=== PATIENT | female | born 1950 | race Caucasian/White ===

== ENCOUNTER 2017-02-22 11:39 | Emergency (ER) | payer MEDICARE, OTHER ==
[2017-02-22 11:56] VITALS: BP 165/79
--- NOTE | 2017-02-22 13:14 | RAD ---
Indication: Left clavicle pain after a fall Comparison: Left shoulder radiograph dated November 01, 2015 Technique: AP and cephalad oblique views LEFT clavicle. Report: The left clavicle and visualized bones are intact and appropriately aligned. There is joint space narrowing of the acromioclavicular joint similar in appearance to the previous left shoulder x-ray dated 1016. No definite fracture is identified. IMPRESSION: Degenerative changes of the left AC joint are similar to the previous radiograph the left shoulder.
--- NOTE | 2017-02-22 13:16 | RAD ---
INDICATION: Left hand pain after a fall COMPARISON: None. TECHNIQUE: 4 views of the left hand were obtained. FINDINGS: The adequately corticated bones are in normal alignment. No significant focal osseous abnormality or fracture is seen. Joint spaces appear maintained. IMPRESSION: Normal left hand radiograph. If the patient's symptoms persist, follow-up imaging is recommended.
--- NOTE | 2017-02-22 13:17 | RAD ---
INDICATION: Trauma. TECHNIQUE: 3 views of the right middle finger were obtained. FINDINGS: The bones are normal alignment. Joint spaces appear maintained. No fracture is seen. IMPRESSION: NO EVIDENCE FOR FRACTURE, IF THE PATIENT'S SYMPTOMS PERSIST RECOMMEND FOLLOW-UP IMAGING.
--- NOTE | 2017-02-22 14:03 | UC ---
Minor Trauma HPI - HPI Summary HPI Summary: TRIPPED ON [employer] YESTERDAY, FELL FORWARD LANDED ON OUTSTRETCHED HANDS. TODAY HAVING CONTINUED PAIN IN LEFT HAND, RIGHT MIDDLE FINGER. HISTORY OF CHRONIC LEFT SHOULDER/CLAVICLE PAIN, HAS PAIN IN CLAVICLE SINCE FALL WELL. - History of Current Complaint Chief Complaint: UCUpperExtremity Stated Complaint: HAND INJURY Time Seen by Provider: 02/22/17 12:14 Hx Obtained From: Patient Onset/Duration: Sudden Onset, Lasting Hours Onset Of Pain: Post Accident Severity Initially: Moderate Severity Currently: Moderate Pain Intensity: 7 Pain Scale Used: 0-10 Numeric Mechanism Of Injury: Fall From A Standing Position Aggravating Factor(s): Movement Alleviating Factor(s): Nothing - Risk Factors Penetrating Injury Risk Factors: Negative - Allergies/Home Medications Allergies/Adverse Reactions: Allergies Allergy/AdvReac Type Severity Reaction Status Date / Time Ammonia Allergy Severe RASH, SOB, Verified 02/22/17 11:56 THROAT CLOSING Sulfa Antibiotics Allergy Severe Rash Verified 02/22/17 11:56 CILLINS Allergy Severe YEAST Uncoded 02/22/17 11:56 INFECTION PAIN MEDS Allergy Severe N/V Uncoded 02/22/17 11:56 Home Medications: Home Medications ALPRAZolam TAB* [Xanax TAB*] 0.25 mg PO BEDTIME PRN 02/22/17 [History Confirmed 02/22/17] PMH/Surg Hx/FS Hx/Imm Hx Previously Healthy: Yes - Surgical History Surgical History: Yes Surgery Procedure, Year, and Place: LAPAROSCOPIC TUBAL LIGATION - Family History Known Family History: Negative: Other - NO JOINT LAXITY - Social History Lives: With Family Alcohol Use: Rare Alcohol Amount: social events Substance Use Type: None Smoking Status (MU): Never Smoked Tobacco - Immunization History Most Recent Influenza Vaccination: unknown Review of Systems Constitutional: Negative Skin: Negative Eyes: Negative ENT: Negative Respiratory: Negative Cardiovascular: Negative Gastrointestinal: Negative Genitourinary: Negative Motor: Negative Neurovascular: Negative Musculoskeletal: Arthralgia, Myalgia Neurological: Negative Psychological: Negative Is Patient Immunocompromised?: Yes All Other Systems Reviewed And Are Negative: No Physical Exam Triage Information Reviewed: Yes Appearance: Well-Appearing, No Pain Distress, Well-Nourished Vital Signs: Initial Vital Signs Temp 98.5 F 02/22/17 11:47 Pulse 89 02/22/17 11:47 Resp 16 02/22/17 11:47 BP 165/79 02/22/17 11:47 Pulse Ox 99 02/22/17 11:47 Vital Signs Reviewed: Yes Eye Exam: Normal ENT Exam: Normal ENT: Positive: Normal ENT inspection Dental Exam: Normal Neck exam: Normal Neck: Positive: Supple, Nontender, No Lymphadenopathy Respiratory Exam: Normal Respiratory: Positive: Chest non-tender, Lungs clear, Normal breath sounds, No respiratory distress, No accessory muscle use Cardiovascular Exam: Normal Cardiovascular: Positive: RRR, No Murmur, Pulses Normal, Brisk Capillary Refill Abdominal Exam: Normal Musculoskeletal: Positive: Strength Limited @ - LEFT HAND, ROM Limited @ - LEFT HAND FLEXION Neurological Exam: Normal Psychological Exam: Normal Skin Exam: Normal Minor Trauma Course/Dx - Differential Dx/Diagnosis Differential Diagnosis/HQI/PQRI: Sprain, Strain Provider Diagnoses: LEFT HAND SPRAIN; RIGHT 3RD FINGER SPRAIN; LEFT AC JOINT SPRAIN Discharge - Discharge Plan Condition: Stable Disposition: HOME Patient Education Materials: Finger Sprain (ED), Hand Sprain (ED) Referrals: [facility] [Outside] - If Needed Justyn Gates MD [Primary Care Provider] -
== END 2017-02-22 13:33 | disposition home or self-care (01) ==
LOC: UCEAST 11:39
DX: S63.92XA Sprain of unspecified part of left wrist and hand, initial encounter (principal); S63.612A Unspecified sprain of right middle finger, initial encounter; S43.52XA Sprain of left acromioclavicular joint, initial encounter; W01.0XXA Fall on same level from slipping, tripping and stumbling without subsequent striking against object, initial encounter; Y93.01 Activity, walking, marching and hiking; Y92.009 Unspecified place in unspecified non-institutional (private) residence as the place of occurrence of the external cause; Y99.9 Unspecified external cause status
CPT/HCPCS: 73140; 99212; G0463

== ENCOUNTER 2017-10-19 16:06 | Emergency (ER) | payer MEDICARE, OTHER ==
[2017-10-19 16:24] VITALS: BP 147/77
[2017-10-19] MEDS ORDERED: Lidocaine 1% MPF* 2 ML VIAL INJ ONE (16:39)
--- NOTE | 2017-10-19 16:39 | UC ---
Laceration HPI - HPI Summary HPI Summary: Patient presents with a past medical history or DM, Diabetic neuropathy. She states she cut her foot on a piece of glass on 10/06/17. She presents today for evaluation of the injury. She states she has been soaking the foot, applying antibiotic ointment, and thought it was getting better. She then reports that the pain became more painful and she couldn't bear weigh. She complains of pain that is constant, but much worse when she walks. Reports she had developed a callous, with surrounding swelling, which has turned white. - History Of Current Complaint Chief Complaint: UCLaceration Stated Complaint: FOOT LACERATION Time Seen by Provider: 10/19/17 16:07 Hx Obtained From: Patient Laceration Location: Foot Mechanism Of Injury: Sharp Trauma Severity: Moderate Pain Intensity: 3 Aggravating Factors: Other: - pressure - Allergies/Home Medications Allergies/Adverse Reactions: Allergies Allergy/AdvReac Type Severity Reaction Status Date / Time ammonia Allergy Rash Verified 10/19/17 16:25 Penicillins Allergy See Comment Verified 10/19/17 16:25 Sulfa (Sulfonamide Allergy Rash Verified 10/19/17 16:25 Antibiotics) PAIN MEDS Allergy Severe N/V Uncoded 10/19/17 16:25 Home Medications: Home Medications Furosemide TAB* [Lasix TAB*] 20 mg PO DAILY 10/19/17 [History Confirmed 10/19/17 ] Omeprazole 20 mg PO 10/19/17 [History] Sitagliptin Phosphate [Januvia] 100 mg PO 10/19/17 [History] PMH/Surg Hx/FS Hx/Imm Hx Previously Healthy: Yes Endocrine History: Diabetes - Surgical History Surgical History: Yes Surgery Procedure, Year, and Place: LAPAROSCOPIC TUBAL LIGATION - Family History Known Family History: Negative: Other - NO JOINT LAXITY - Social History Occupation: Retired Lives: Alone Alcohol Use: Rare Alcohol Amount: social events Substance Use Type: None Smoking Status (MU): Never Smoked Tobacco - Immunization History Most Recent Influenza Vaccination: unknown Review of Systems Constitutional: Negative Skin: Other - foreign body left foot. Eyes: Negative ENT: Negative Respiratory: Negative Cardiovascular: Negative Gastrointestinal: Negative Genitourinary: Negative Motor: Negative Neurovascular: Negative Musculoskeletal: Negative Neurological: Negative Psychological: Negative Is Patient Immunocompromised?: No All Other Systems Reviewed And Are Negative: Yes Physical Exam Triage Information Reviewed: Yes Appearance: Well-Appearing Vital Signs: Initial Vital Signs Temp 97.7 F 10/19/17 16:19 Pulse 94 10/19/17 16:19 Resp 18 10/19/17 16:19 BP 147/77 10/19/17 16:19 Pulse Ox 99 10/19/17 16:19 Vital Signs Reviewed: Yes Eye Exam: Normal ENT Exam: Normal Dental Exam: Normal Neck exam: Normal Neck: Positive: 1 Respiratory Exam: Normal Cardiovascular Exam: Normal Abdominal Exam: Normal Musculoskeletal Exam: Normal Neurological Exam: Normal Psychological Exam: Normal Skin Exam: Normal Laceration Course/Dx - Course/Dx Course Of Treatment: Patient present s/p traumatic injury to the left foot that occurred on 10/06/17 when she was packing glasswear. She felt something in her foot. Xrays were obtained and were negative for foreign body, after I+D and small peice of glasss was removed, and she felt instant relief. Please refer to Dr. Funk dictation regarding the prodcedure note.Culture was obtained results pending. Patient was started on Bactrim ds 1 tablet bid x 1 days. Patient told to come back to the clinic in 48 hours for recheck and get s CT scan of foot to check for osteomyelitis. Procedure note: Incision and drainage : Right foot 2nd toe plantar aspect incision and drainage/ foreign body removal: I discussed risks (including pain, infection, bleeding), benefits, and alternatives (including no procedure ). Informed consent was obtained from the patient. Prior to the procedure ,a time out was performed. Patient was placed in the supine position. After prepping the skin with alcohol and betadine, under sterile conditions right foot site was injected with 1cc 1% preservative free lidocaine without epinephrine, and a small superficial incision was made with scalpel, whitish discharge was expressed and sent to lab for culture, small piece of glass was removed. Patient tolerated procedure well. No immediate complications were noted. Patient will report immediately with any signs of infection. - Differential Dx - Laceration/Wound Differental Diagnoses: Other - foreign body Provider Diagnoses: foreign body Discharge - Sign-Out/Discharge Documenting (check all that apply): Patient Departure - Discharge Plan Condition: Stable Disposition: HOME Prescriptions: Fluconazole 100 MG TAB* [Diflucan 100 MG TAB*] 100 mg PO DAILY #1 tab Sulfamethox/Trimethoprim DS* [Bactrim DS 800/160 TAB*] 1 tab PO BID #20 tab Patient Education Materials: Soft Tissue Foreign Body (ED) Referrals: Justyn Gates MD [Primary Care Provider] - David Miles MD [Medical Doctor] - Additional Instructions: Return to the clinic in 48 hours to have the wound rechecked,and i get a CT scan of the left foot to check for osteomyelitis. - Billing Disposition and Condition Condition: STABLE Disposition: Home
[2017-10-19] MEDS ORDERED: Lidocaine 1%* 5 ML VIAL ONE (16:43)
[2017-10-19] MEDS ORDERED: Sulfamethox/Trimethoprim DS 800/160* TAB PO ONE (17:28)
--- NOTE | 2017-10-19 17:37 | RAD ---
INDICATION: Left foot pain COMPARISON: None TECHNIQUE: AP, lateral, and oblique views were obtained. FINDINGS: There is no acute fracture. There is an old fifth metatarsal fracture. The joint spaces are maintained There are heel spurs. There is no foreign body IMPRESSION: NO ACUTE FRACTURE OR FOREIGN BODY.
== END 2017-10-19 18:05 | disposition home or self-care (01) ==
LOC: UCEAST 16:06
DX: S90.852A Superficial foreign body, left foot, initial encounter (principal); X58.XXXA Exposure to other specified factors, initial encounter; Y93.89 Activity, other specified; Y92.9 Unspecified place or not applicable; E11.8 Type 2 diabetes mellitus with unspecified complications; Z79.84 Long term (current) use of oral hypoglycemic drugs; Z88.6 Allergy status to analgesic agent; Z88.0 Allergy status to penicillin; Z88.2 Allergy status to sulfonamides
CPT/HCPCS: 10060; 28190; 87070; 87077; 87205; 87640; 87641; 99212; A9270-GY; G0463

== ENCOUNTER 2017-10-21 14:28 | Emergency (ER) | payer MEDICARE, OTHER ==
--- OUTSIDE RECORDS SUMMARY | 2017-10-21 14:40 | XMS REPORT ---
:1950 External Reference #:[id number] Author Organization [employer] Address [address] [place] [address] [place] [address] Phone [phone] Care Team Providers Name Role Phone Justyn Gates MD Primary Care Physician Unavailable Payers Type Date Identification Numbers Payment Provider Subscriber Medicare Primary Effective: Policy Number: Medicare Orquidea Arguello 2016 [id number] PayID: [id number] [address] [place] [address] Commercial Policy Number: [id number] [facility] Indemnity Orquidea Arguello Group Number: [id number] [address] Group Name: Medicare Extension [place] [phone] PayID: [id number] Commercial Expires: 2016 Policy Number: [facility] Orquidea Arguello [id number] Indemnity Group Number: [id number] [address] PayID: [id number] [place] [address] Problems Date Description Provider Status Onset: 11/12/2016 Type II diabetes mellitus Oscar Snow uncontrolled Darby,FACP Onset: 11/12/2016 Chronic diarrhea Oscar Snow M.D.,MARYP Onset: 11/12/2016 Gastroesophageal reflux disease Oscar Snow M.D.,STEVEN Onset: 11/12/2016 Hepatitis B carrier Oscar Snow M.D.,STEVEN Note: acute 1971 Onset: 11/12/2016 Osteoarthritis of multiple joints Oscar Snow M.D.,FACP Note: R knee, L hip Onset: 11/12/2016 Acquired thrombocytopenia Justyn Gates M.D.,FACP Active Note: mild Family History Date Family Member(s) Problem(s) Comments General Diabetes General Heart Disease General Hypertension Father due to CAD () Father due to COPD () Father due to Arthritis () Father due to IA () Mother due to CAD () Mother Atrial Fibrillation Mother due to IA () Mother Diabetes Type II Siblings 1 Social History Type Date Description Comments Marital Status Marital Status 64 Years from COPD. Occupation Retired retired nurse Cigarette Use Never Smoked Cigarettes ETOH Use 04/05/2017 Rarely consumes alcohol Smoking Patient has never smoked Recreational Drug Use Denies Drug Use Daily Caffeine Consumes on average 1 cup of hot tea per day Exercise Type/Frequency Exercises regularly Allergies, Adverse Reactions, Alerts Date Description Reaction Status Severity Comments 11/12/2016 NSAIDS active Mild to Moderate Stomach Pain 11/12/2016 Atorvastatin active myalgias 11/12/2016 Simvastatin active 11/12/2016 Sulfamethoxazole active rash 04/01/2017 Rosuvastatin active Moderate rash and arthritic pain 11/01/2015 NKDA inactive Medications Medication Date Status Form Strength Qnty SIG Indications Ordering Provider Accu-Chek 07/17/ Active Misc 102uni use twice E11.65 Justyn Fastclix 2018 ts daily to Pipo Gates, Lancets check [facility] visit: 07/15/17 Accu-Check 07/15/ Active Device 1units use devise E11.65 Justyn Glucose 2018 as Pipo Gates, Monitor instructed Darby,FACBetty daily last visit: 07/15/17, may change product if insurance does not cover e 11.65 Accu-Chek 11/12/ Active Strips qam and qpm Justyn Jeni Plus 2017 prn Pipo Gates M.D.,MARYP Lasix / Active Tablets 20mg 30tabs 1 by mouth Justyn 0000 every day Pipo Gates, as needed Darby,STEVEN Omeprazole 00/ Active Capsules 20mg 1 by mouth Unknown 0000 DR every day prn Codeine / Active Tablets 30mg 120tab 1-2 tablets Dirk Sulfate 0000 s every 6 Carine, hours if M.D. needed for pain, decrease as soon as possible Alprazolam 00/ Active Tablets 1mg 60tabs 1-2 tablets Dirk 0000 as needed Carine, for pain M.D. and spasms at night, decrease as soon as possible Nystatin 00/ Active Cream [id number] 15gm topically Justyn 0000 /GM twice a day Pipo Gates, as needed M.D.,FACP Metformin HCL / Active Tablets ER 500mg 360tab take 2 Justyn ER 0000 24HR s tablets by Pipo Gates, mouth twice M.D.,FACP a day Glipizide ER / Active Tablets ER 10mg 180tab take 1 Justyn 0000 24HR s tablet once Pipo Gates, a day M.D.,FACP Invokana 07/25/ Hx Tablets 100mg 90tabs 1 by mouth Mega 2018 - every day Pachikara 10/02/ , M.Pipo 2018 Jardiance 07/15/ Hx Tablets 10mg 90tabs 1 by mouth Justyn 2018 - every night Pipo Gates, 07/25/ M.D.,FACP 2018 Januvia 04/01/ Hx Tablets 100mg 90tabs 1 by mouth Justyn 2018 - every day Pipo Gates, 06/30/ M.D.,FACP 2018 Cefuroxime 04/01/ Hx Tablets 500mg 14tabs 1 by mouth Justyn Axetil 2018 - twice a day Pipo Gates, 04/08/ for 7 days M.D.,FACP 2018 Rosuvastatin 11/12/ Hx Tablets 5mg 90tabs 1 by mouth Justyn Calcium 2017 - every night Pipo Gates, 04/01/ at bedtime M.Lynn.,FACP 2018 Metformin HCL / Hx Tablets 1000mg 1 by mouth Unknown 0000 - twice a day 2016 Nystatin / Hx Powder apply twice Unknown 0000 - a day until 07/15/ rash clears 2017 Janumet XR / Hx Tablets ER 100-1000mg 1 by mouth Unknown 0000 - 24HR every day 2017 Medications Administered in Office Medication Date Status Form Strength Qnty SIG Indications Ordering Provider Depomedrol Administered Injection Dirk Carine, 40MG 016 M.D. Depomedrol Administered Injection Dirk Carine, 40MG 016 M.D. Immunizations CPT Code Status Date Vaccine Lot # [id number] Given 03/20/2017 Influenza Virus Vaccine, Quadrivalent, Split, Preservative Free [id number] Given 06/21/2016 Pneumonia Vaccine [id number] Given 08/04/2014 Zoster (Zostavax) Vital Signs Date Vital Result Comment 10/13/2017 Height 65.25 inches 5'5.25" Weight 208.00 lb BP Systolic Sitting 136 mmHg BP Diastolic Sitting 74 mmHg Respiratory Rate 16 /min Pain Level 7 BMI (Body Mass Index) 34.3 kg/m2 07/15/2017 Weight 199.00 lb Heart Rate 87 /min BP Systolic Sitting 128 mmHg BP Diastolic Sitting 64 mmHg Body Temperature 98.1 F O2 % BldC Oximetry 98 % 04/01/2017 Height 65.5 inches 5'5.50" Weight 203.00 lb BMI (Body Mass Index) 33.3 kg/m2 11/12/2016 Height 65.25 inches 5'5.25" Weight 211.00 lb Heart Rate 89 /min BP Systolic Sitting 120 mmHg BP Diastolic Sitting 64 mmHg Body Temperature 98.4 F O2 % BldC Oximetry 98 % BMI (Body Mass Index) 34.8 kg/m2 11/01/2015 Height 65 inches 5'5" Weight 216.00 lb BP Systolic 128 mmHg BP Diastolic 78 mmHg Pain Level 6 BMI (Body Mass Index) 35.9 kg/m2 Results Test Date Test Result H/L Range Note Laboratory test finding 07/15/2017 Hemoglobin A1c 9.3 High 5-7 Lipid Profile (Trig/Chol/HDL) 03/31/2017 Triglycerides 127 mg/dL 1 Cholesterol 170 mg/dL 2 HDL Cholesterol 47.2 mg/dL 3 LDL Cholesterol 97 mg/dL 4 Laboratory test finding 03/31/2017 Hepatitis C Antibody Nonreactive Nonreactive 5 Basic Metabolic Panel 03/31/2017 Sodium 138 mmol/L 133-145 Potassium 4.1 mmol/L 3.5-5.0 Chloride 104 mmol/L 101-111 Co2 Carbon Dioxide 29 mmol/L 22-32 Anion Gap 5 mmol/L 2-11 Glucose 133 mg/dL High 70-100 Blood Urea Nitrogen 9 mg/dL 6-24 Creatinine 0.73 mg/dL 0.51-0.95 BUN/Creatinine Ratio 12.3 8-20 Calcium 10.3 mg/dL 8.6-10.3 Egfr Non- 80.0 >60 Egfr 102.9 >60 6 Urine Microalbumin Random 03/31/2017 Ur Microalbumin (mg/L) 28.2 mg/L Urine Creatinine 153.35 mg/dL Urine Microalbumin/Creatinine 18.3 ug/mg <31 Laboratory test finding 03/31/2017 Hemoglobin A1c (Glyco 10.3 % High 4.0- 5.6 7 HGB) Laboratory test finding 11/12/2016 Hemoglobin A1c 9.7 High 5-7 CBC Auto Diff 06/17/2016 White Blood Count 7.3 10^3/uL 3.5-10.8 Red Blood Count 4.41 10^6/uL 4.0-5.4 Hemoglobin 13.6 g/dL 12.0-16.0 Hematocrit 41 % 35-47 Mean Corpuscular Volume 93 fL 80-97 Mean Corpuscular Hemoglobin 31 pg 27-31 Mean Corpuscular HGB Conc 33 g/dL 31-36 Red Cell Distribution Width 14 % 10.5-15 Platelet Count 124 10^3/uL Low 150-450 Mean Platelet Volume 9 um3 7.4-10.4 Abs Neutrophils 3.5 10^3/uL 1.5-7.7 Abs Lymphocytes 3.0 10^3/uL 1.0-4.8 Abs Monocytes 0.5 10^3/uL 0-0.8 Abs Eosinophils 0.3 10^3/uL 0-0.6 Abs Basophils 0 10^3/uL 0-0.2 Abs Nucleated RBC 0.01 10^3/uL Granulocyte % 47.7 % 38-83 Lymphocyte % 40.8 % 25-47 Monocyte % 6.3 % 1-9 Eosinophil % 4.5 % 0-6 Basophil % 0.7 % 0-2 Nucleated Red Blood Cells % 0.1 Laboratory test 06/17/2016 Hemoglobin A1c (Glyco 10.0 % High Less than 6.0 8 finding HGB) Comp Metabolic Panel 06/17/2016 Sodium 137 mmol/L 133-145 Potassium 4.4 mmol/L 3.5-5.0 Chloride 101 mmol/L 101-111 Co2 Carbon Dioxide 30 mmol/L 22-32 Anion Gap 6 mmol/L 2-11 Glucose 189 mg/dL High 70-100 Blood Urea Nitrogen 10 mg/dL 6-24 Creatinine 0.71 mg/dL 0.51-0.95 BUN/Creatinine Ratio 14.1 8-20 Calcium 10.3 mg/dL 8.6-10.3 Total Protein 6.9 g/dL 6.4-8.9 Albumin 4.2 g/dL 3.2-5.2 Globulin 2.7 g/dL 2-4 Albumin/Globulin Ratio 1.6 1-3 Total Bilirubin 0.70 mg/dL 0.2-1.0 Alkaline Phosphatase 83 U/L 34-104 Alt 51 U/L 7-52 Ast 48 U/L High 13-39 Egfr Non- 82.6 >60 Egfr 106.3 >60 9 Lipid Profile (Trig/Chol/HDL) 06/17/2016 Triglycerides 109 mg/dL 10 Cholesterol 202 mg/dL 11 HDL Cholesterol 56.7 mg/dL 12 LDL Cholesterol 124 mg/dL 13 1 Desirable: <150 Borderline High: 150-199 High: 200-499 Very High: >500 2 Desirable: <200 Borderline High: 200-239 High: >239 3 Low: <40 Desirable: 40-60 High: >60 4 Desirable: <100 Near Optimal: 100-129 Borderline High: 130-159 High: 160-189 Very High: >189 5 FASTING 10 HOUR 6 Because ethnic data is not always readily available, this report includes an eGFR for both -Americans and non- Americans. The National Kidney Disease Education Program (NKDEP) does not endorse the use of the MDRD equation for patients that are not between the ages of 18 and 70, are , have extremes of body size, muscle mass, or nutritional status, or are non- or non-. According to the National Kidney Foundation, irrespective of diagnosis, the stage of the disease is based on the level of kidney function: Stage Description GFR(mL/min/1.73 m(2)) 1 Kidney damage with normal or decreased GFR 90 2 Kidney damage with mild decrease in GFR 60-89 3 Moderate decrease in GFR 30-59 4 Severe decrease in GFR 15-29 5 Kidney failure <15 (or dialysis) 7 Therapeutic target for the treatment of diabetes mellitus patients is <7% HBA1C, and in selective patients <6.0%. Please refer to [place] Diabetes Association diabetic care guidelines for further information. 8 Therapeutic target for the treatment of diabetes Mellitus patients is <7% HBA1C, and in selective patients <6.0%.Please refer to [place] Diabetes Association Diabetic care guidelines for further information. 9 Because ethnic data is not always readily available, this report includes an eGFR for both -Americans and non- Americans. The National Kidney Disease Education Program (NKDEP) does not endorse the use of the MDRD equation for patients that are not between the ages of 18 and 70, are , have extremes of body size, muscle mass, or nutritional status, or are non- or non-. According to the National Kidney Foundation, irrespective of diagnosis, the stage of the disease is based on the level of kidney function: Stage Description GFR(mL/min/1.73 m(2)) 1 Kidney damage with normal or decreased GFR 90 2 Kidney damage with mild decrease in GFR 60-89 3 Moderate decrease in GFR 30-59 4 Severe decrease in GFR 15-29 5 Kidney failure <15 (or dialysis) 10 Desirable <150 Borderline high 150-199 High 200-499 Very High >500 11 Desirable <200 Borderline high 200-239 High >239 12 Low <40 Desirable: 40-60 High: >60 13 Desirable: <100 mg/dL Near Optimal: 100-129 mg/dL Borderline High: 130-159 mg/dL High: 160-189 mg/dL Very High: >189 mg/dL Procedures Date CPT Code Description Status 12/11/2016 Mammogram Completed 11/01/201513537 Inject/Drain Joint/Bursa Major W/O US Completed 11/01/201542734 Inject Tendon Sheath Or Ligament Aponeurosis Eg Plantar Completed Fascia 09/16/2013 Mammogram Completed 05/14/2012 Colonoscopy Completed Encounters Type Date Location Provider CPT E/M Dx Office Visit 07/15/2017 [facility] Jutsyn Gates, [id number] E11.65 11:40a - Sb Pastor,STEVEN Office Visit 11/12/2016 [facility] Justyn Gates, 29366 E11.65 1:40p - Sb Pastor,FACP Z12.31 E78.2 Office Visit 11/01/2015 10:30a [facility] M.D. 70295 M65.4 Misael M65.812 Plan of Care Future Appointment(s):11/05/2017 2:15 pm - Son [facility] M.D. at [facility]11/04/2017 2:20 pm - Justyn Gates M.D.,FACP at [facility] Internal [facility]10/13/2017 - Son Hawk M.D.M54.41 Lumbago with sciatica, right sideNew Therapy:Physical TherapyFollow up:Follow up: 3-[address] Hawk
[2017-10-21 14:56] VITALS: BP 141/84
--- NOTE | 2017-10-21 15:47 | UC ---
HPI Wound/Suture Re-check - HPI Summary HPI Summary: 67 y/o female presents to the urgent care for wound re-check came in friday with foot pain and swelling on her foot from a glass injury. had an I& D, had an antibiotic, wants a post procedure recheck. she is diabetic with neuropathy - History Of Current Complaint Chief Complaint: UCWounds Stated Complaint: RECHECK WOUND ON FOOT Time Seen by Provider: 10/21/17 15:46 Pain Intensity: 4 - Allergies/Home Medications Allergies/Adverse Reactions: Allergies Allergy/AdvReac Type Severity Reaction Status Date / Time ammonia Allergy Rash Verified 10/21/17 14:57 Penicillins Allergy See Comment Verified 10/21/17 14:57 Sulfa (Sulfonamide Allergy Rash Verified 10/21/17 14:57 Antibiotics) PAIN MEDS Allergy Severe N/V Uncoded 10/21/17 14:57 Home Medications: Home Medications Codeine TAB* [Codeine Tab*] 1 tab PO QPM PRN 10/21/17 [History Confirmed ] PMH/Surg Hx/FS Hx/Imm Hx - Surgical History Surgical History: Yes Surgery Procedure, Year, and Place: LAPAROSCOPIC TUBAL LIGATION - Family History Known Family History: Negative: Other - NO JOINT LAXITY - Social History Alcohol Use: Rare Alcohol Amount: social events Substance Use Type: Prescribed Smoking Status (MU): Never Smoked Tobacco - Immunization History Most Recent Influenza Vaccination: unknown Physical Exam Vital Signs: Initial Vital Signs Temp 97.7 F 10/21/17 14:47 Pulse 89 10/21/17 14:47 Resp 18 10/21/17 14:47 BP 141/84 10/21/17 14:47 Pulse Ox 99 10/21/17 14:47 Discharge - Discharge Plan Referrals: Justyn Gates MD [Primary Care Provider] -
== END 2017-10-21 16:25 | disposition home or self-care (01) ==
LOC: UCEAST 14:28
DX: Z48.817 Encounter for surgical aftercare following surgery on the skin and subcutaneous tissue (principal); Z88.8 Allergy status to other drugs, medicaments and biological substances; Z88.0 Allergy status to penicillin; Z88.2 Allergy status to sulfonamides
CPT/HCPCS: 99211; G0463